=== PATIENT | female | born 1995 | race African-American/Black ===

== ENCOUNTER 2017-09-03 22:24 | Emergency (ER) | payer OTHER ==
[~2017-09-03] VITALS: Ht 152.4 cm; Wt 45.4 kg
[2017-09-03] MEDS ORDERED: NKM (22:40)
--- NOTE | 2017-09-03 22:56 | Emergency Room Report ---
History of Present Illness General Chief Complaint: Vaginal Source: Patient Present Illness HPI The patient presents with vaginal bleeding. She's passed some clot material tonight. She denies any pain. She denies dysuria. 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 She's not using any control at this time. She denies nausea, vomiting, change in bowels. She has no rashes. No fever. Never and not know blood type. No fevers, abdominal pain, flank pain, URI sy, cough, chest pain, dizziness. Mild stress. 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 Last Menstrual Period: 08/21/18 Now: No Reviewed Nursing Documentation: PMH: Agreed; PSxH: Agreed Nursing Documentation-PMH Past Medical History: No Stated History Review of Systems All Other Systems: negative except mentioned in HPI Physical Exam Vital Signs Date Time Temp Pulse Resp B/P (MAP) Pulse Ox O2 Delivery O2 Flow Rate FiO2 09/03/17 22:34 98.8 91 16 119/76 99 Room Air 98.8 Sp02 EP Interpretation: reviewed, normal General Appearance: well appearing, no apparent distress, GCS 15, other - smell of THC Head: normocephalic Eyes: bilateral eye PERRL, bilateral eye Scleral Injection ENT: moist mucus membranes Neck: supple Respiratory: lungs clear, normal breath sounds Cardiovascular #1: regular rate, rhythm Cardiovascular #2: 2+ radial (R) Gastrointestinal: normal inspection, normal bowel sounds, non tender, no mass, non-distended Genitourinary: no CVA tenderness, deferred Musculoskeletal: back normal, gait/station normal, normal range of motion Neurologic: alert, oriented x3, grossly normal Psychiatric: mood/affect normal Skin: normal inspection, warm/dry Medical Decision Making Diagnostic Impression: Primary Impression: Metrorrhagia Additional Impression: UTI (urinary tract infection) Qualified Codes: N30.00 - Acute cystitis without hematuria ER Course Patient presents with painless vaginal bleeding which is irregular for her. DDx : , metrorrhagia, discharge, UTI, stress amongst others. Evaluation with UA and preg. UA preg neg. + some WBCs but many more RBCs. Antibiotics begun. Discussed abnormal menses and need for follow up and if not want to be , to get control. Patient stable for outpatient observation and treatment. Laboratory Tests Test 09/03/17 22:40 Urine Color Pale yellow Urine Appearance Clear Urine pH 8 (4.5-8.0) Urine Specific [place] 1.010 (1.005-1.035) Urine Protein Negative (NEGATIVE) Urine Glucose (UA) Negative (NEGATIVE) Urine Ketones Negative (NEGATIVE) Urine Occult Blood 5+ (NEGATIVE) H Urine Nitrite Negative (NEGATIVE) Urine Bilirubin Negative (NEGATIVE) Urine Urobilinogen Normal MG/DL (0.0-1.0) Urine Leukocyte Esterase 3+ (NEGATIVE) H Urine RBC Tntc /HPF (0 - 2) H Urine WBC 10-15 /HPF (0 - 2) H Urine Squamous Epithelial Cells Few /LPF (NONE/OCC) Urine Bacteria Few /HPF (NONE) Urine HCG, Qualitative Negative (NEGATIVE) Last Vital Signs Date Time Temp Pulse Resp B/P (MAP) Pulse Ox O2 Delivery O2 Flow Rate FiO2 09/04/17 00:00 97.2 62 16 114/65 100 Room Air 97.2 Status: improved Disposition: HOME, SELF-CARE Condition: Improved Scripts Nitrofurantoin Monohyd/M-Cryst* (MACROBID 100 MG*) 100 Mg Capsule 100 MG ORAL EVERY 12 HOURS, #14 CAP Prov: Perez Mora M.D. 09/03/17 Perez Mora M.D. Sep 03, 2017 22:56
[2017-09-03 23:15] LABS: APPEARANCE,URINE CLEAR; BILIRUBIN, URINE NEGATIVE (NEGATIVE); COLOR,URINE PALE YELLOW; GLUCOSE, URINE (UA) NEGATIVE (NEGATIVE); KETONES,URINE NEGATIVE (NEGATIVE); LEUKOCYTE ESTERASE ,URINE 3+ (NEGATIVE); NITRITE,URINE NEGATIVE (NEGATIVE); PH,URINE 8 (4.5-8.0); PROTEIN,URINE NEGATIVE (NEGATIVE); UROBILINOGEN,URINE NORMAL MG/DL (0.0-1.0)
[2017-09-03] MEDS ORDERED: NITROFURANTOIN100 M2 ORAL (23:42)
[2017-09-03 23:59] VITALS: BP 114/65
[2017-09-04] VITALS: BP 114/65
== END 2017-09-04 | disposition home or self-care (01) ==
LOC: EMR 23:00
DX: N92.1 Excessive and frequent menstruation with irregular cycle (principal); N39.0 Urinary tract infection, site not specified
CPT/HCPCS: 81003; 81025; 87086; 87181; 99282

== ENCOUNTER 2017-10-15 17:43 | Emergency (ER) | payer OTHER ==
[~2017-10-15] VITALS: Ht 152.4 cm; Wt 47.2 kg
[~2017-10-15 17:43] MED LIST: NITROFURANTOIN100 M2 ORAL; NKM
[2017-10-15 18:33] LABS: APPEARANCE,URINE CLEAR; BILIRUBIN, URINE NEGATIVE (NEGATIVE); COLOR,URINE PALE YELLOW; GLUCOSE, URINE (UA) NEGATIVE (NEGATIVE); KETONES,URINE NEGATIVE (NEGATIVE); LEUKOCYTE ESTERASE ,URINE 3+ (NEGATIVE); NITRITE,URINE NEGATIVE (NEGATIVE); PH,URINE 7 (4.5-8.0); PROTEIN,URINE NEGATIVE (NEGATIVE); UROBILINOGEN,URINE NORMAL MG/DL (0.0-1.0)
--- NOTE | 2017-10-15 18:33 | Emergency Room Report ---
History of Present Illness General Chief Complaint: General Complaint Source: Patient Present Illness HPI 22-year-old female presents to the emergency department requesting testing as well as treatment for Trichomonas. Patient reports that her partner contacted her and told her that he tested positive for Trichomonas and she would like to be treated. Patient denies fevers, chills, rashes, vaginal discharge, dysuria, hematuria, swollen tender lymph nodes. denies abdominal pain or tenderness. Allergies: Coded Allergies: No Known Allergies (Unverified , 09/03/17) Patient History Past Medical History: see triage record Past Surgical History: none Pertinent Family History: none Last Menstrual Period: 09/07/17 Now: No - unknown : 0 Para: 0 Reviewed Nursing Documentation: PMH: Agreed; PSxH: Agreed Nursing Documentation-PMH Past Medical History: No Stated History Review of Systems All Other Systems: negative except mentioned in HPI Physical Exam Vital Signs Date Time Temp Pulse Resp B/P (MAP) Pulse Ox O2 Delivery O2 Flow Rate FiO2 10/15/17 18:12 98.7 83 16 102/70 98 Room Air 98.8 Sp02 EP Interpretation: reviewed, normal General Appearance: no apparent distress, alert, GCS 15, non-toxic Head: normocephalic, atraumatic ENT: hearing grossly normal, normal voice Neck: full range of motion Respiratory: lungs clear, normal breath sounds, speaking full sentences Cardiovascular #1: regular rate, rhythm Gastrointestinal: non tender, soft Rectal: deferred Genitourinary: normal inspection, no CVA tenderness Musculoskeletal: back normal, gait/station normal, normal range of motion, non- tender Neurologic: alert, oriented x3, responsive, motor strength/tone normal, sensory intact, normal gait, speech normal, grossly normal Psychiatric: judgement/insight normal Skin: normal color, no rash, warm/dry, well hydrated Lymphatic: no adenopathy Medical Decision Making PA Attestation Dr. montano is my supervising Physician whom patient management has been discussed with. Diagnostic Impression: Primary Impression: Contact with or exposure to venereal diseases ER Course 22-year-old female presents to the emergency department requesting testing as well as treatment for Trichomonas. Patient reports that her partner contacted her and told her that he tested positive for Trichomonas and she would like to be treated. Patient denies fevers, chills, rashes, vaginal discharge, dysuria, hematuria, swollen tender lymph nodes. denies abdominal pain or tenderness. Ddx considered but are not limited to UTi , STI, G & C, trichomonas, Vaginitis , cervicitis, bartholins gland cyst or cellulitis. Vital signs: are WNL, pt. is afebrile H&PE are most consistent with exposure to trichomonas ORDERS: - Urine Hcg: Negative -UAA: unremarkable ED INTERVENTIONS: none at this time. DISCHARGE: At this time pt. is stable for d/c to home. Will provide printed patient care instructions, and any necessary prescriptions. Care plan and follow up instructions have been discussed with the patient prior to discharge. Labs Test 10/15/17 18:21 Urine Color Pale yellow Urine Appearance Clear Urine pH 7 (4.5-8.0) Urine Specific [place] 1.010 (1.005-1.035) Urine Protein Negative (NEGATIVE) Urine Glucose (UA) Negative (NEGATIVE) Urine Ketones Negative (NEGATIVE) Urine Occult Blood Negative (NEGATIVE) Urine Nitrite Negative (NEGATIVE) Urine Bilirubin Negative (NEGATIVE) Urine Urobilinogen Normal MG/DL (0.0-1.0) Urine Leukocyte Esterase 3+ (NEGATIVE) Urine RBC 0-2 /HPF (0 - 2) Urine WBC 5-10 /HPF (0 - 2) Urine Squamous Epithelial Cells Few /LPF (NONE/OCC) Urine Bacteria Few /HPF (NONE) Urine HCG, Qualitative Negative (NEGATIVE) Last Vital Signs Date Time Temp Pulse Resp B/P (MAP) Pulse Ox O2 Delivery O2 Flow Rate FiO2 10/15/17 18:12 98.7 83 16 102/70 98 Room Air 98.8 Disposition: HOME, SELF-CARE Condition: Stable Scripts Metronidazole* (FLAGYL*) 500 Mg Tablet 500 MG ORAL BID for 5 Days, #10 TAB 0 Refills Prov: Mary Simons 10/15/17 Patient Instructions: Trichomonas Test Additional Instructions: Take medications as directed. ! Do not drink alcohol while taking Flagyl/Metronidazole as this will cause a skin reaction. Follow up with a Primary Care Provider in 3-5 days, even if your symptoms have resolved. --Please review list of primary care clinics, if you do not already have a primary care provider Return sooner to ED if new symptoms occur, or current symptoms become worse. - Please note that this Emergency Department Report was dictated using [employer] software, occasionally this can lead to erroneous entry secondary to interpretation by the dictation equipment. Mary Simons. Oct 15, 2017 18:33
[2017-10-15] MEDS ORDERED: METRONIDAZOLE500 MG ORAL (18:39)
[2017-10-15 19:01] VITALS: BP 102/70
== END 2017-10-15 19:02 | disposition home or self-care (01) ==
LOC: EMR 19:00
DX: Z20.2 Contact with and (suspected) exposure to infections with a predominantly sexual mode of transmission (principal)
CPT/HCPCS: 81003; 81025; 99283